=== PATIENT | male | born 1955 | race Caucasian/White ===

== ENCOUNTER → 2024-06-03 | Outpatient (CLI) | payer MEDICARE, MEDICAID, SELFPAY ==
--- NOTE | 2024-06-03 10:25 | XR_ITS ---
Examination: PA lateral chest 2 views TECHNIQUE: Upright PA lateral chest 2 views Exam date and time: June 03, 2024 1104 hours Comparison July 2023 INDICATIONS: TB screening FINDINGS: Normal heart size No pneumonia or pulmonary edema Moderate osteopenia IMPRESSION: No active disease No radiographic findings of tuberculosis
== END | disposition home or self-care (01) ==
PROVIDERS: PCP Family Medicine; Referring Provider Internal Medicine; Visit Provider Internal Medicine
DX: Z11.1 Encounter for screening for respiratory tuberculosis (principal)
CPT/HCPCS: 71046

== ENCOUNTER 2025-03-17 22:23 | Emergency (ER) | payer MEDICARE, MEDICAID, SELFPAY ==
[2025-03-17 22:24] VITALS: BMI 37.5
[2025-03-17 22:59] VITALS: BP 156/89; PULSE 99; RESP 17; TEMP 36.8; O2SAT 96
--- NOTE | 2025-03-17 23:06 | PD.EDRECHK ---
ED Recheck Abnl Lab Rx-RME/HPI General Chief Complaint: General Adult/Misc Complain Stated Complaint: DIALYSIS FISTULA BLEEDING Time Seen by Provider: 03/17/25 23:11 Arrival date/time: 03/17/25 22:23 RME / HPI RME / HPI narrative: See [facility] for Dr. Stiles's HPI documentation. Related Data Home Medications ?Medication ?Instructions ?Recorded ?Confirmed clonidine 0.3 mg/24 hr weekly 0.3 mg topical QWEEK 08/16/21 03/22/24 transdermal patch diphenhydramine HCl 25 mg tablet 25 mg PO Q6H PRN allergy 08/16/21 03/22/24 lisinopril 40 mg tablet 40 mg PO QDAY 08/16/21 03/22/24 tamsulosin 0.4 mg capsule 0.4 mg PO QDAY 08/16/21 03/22/24 vitamin B complex-vitamin C-folic 1 tab PO QDAY 03/19/22 03/22/24 acid 0.8 mg tablet (Bianca-Mayelin) amlodipine 10 mg tablet 10 mg PO QDAY 03/22/24 03/22/24 Previous Rx's ?Medication ?Instructions ?Recorded atorvastatin 80 mg tablet 80 mg PO QPM #30 tabs 03/23/24 Allergies Allergy/AdvReac Type Severity Reaction Status Date / Time Insulins AdvReac Severe Mild rash Verified 03/17/25 22:24 Review of Systems Review of Systems Systems Reviewed: All systems reviewed, normal except as documented ED Exam Narrative Physical exam: See [facility] for Dr. Stiles's physical exam documentation. Course Quality Measures none Orders Category Date Time Status BMP [Basic Metabolic Panel] Stat Lab 03/17/25 23:23 Completed CBC Stat Lab 03/17/25 23:23 Completed Magnesium Stat Lab 03/17/25 23:23 Completed Metoprolol Tartrate [Lopressor] Med 03/17/25 23:12 Discontinued 50 mg PO X1 ONE cloNIDine HCL [Catapres] Med 03/17/25 23:12 Discontinued 0.2 mg PO X1 ONE Vital Signs Vital signs: Vital Signs Temperature 98.2 F 03/17/25 22:59 Pulse Rate 99 03/17/25 22:59 Respiratory Rate 17 03/17/25 22:59 Blood Pressure 156/89 H 03/17/25 22:59 Pulse Oximetry (%) 96 03/17/25 22:59 Oxygen Delivery Method Room Air 03/17/25 22:59 Recheck / Abnormal Lab / Rx MDM Narrative MDM Narrative:: This section includes all my notes and documentations, including HPI, PE, and ED course. Albert Stiles MD HPI: 69yo male with history of ESRD on HD (MWF), IDDM, HTN here with dialysis shunt bleeding. Patient was dialyzed around 3pm today, about 8 hours ago. About an hour ago, he took off the bandage. And noted severe bleeding. No other complaints. ROS: All negative except as documented in HPI. Physical Exam: General: Alert and oriented. No acute distress when remaining still. High BP and tachycardia noted. Eyes: Conjunctivae and lids clear. ENT: No nasal congestion. Neck: Supple. Heart: RRR. Lungs: No respiratory distress. Good air movement. No rhonchi, wheezing, rales. Abdomen: Soft and nontender. Normal bowel sounds. No distension. No rebound or guarding. Back: No CVA tenderness. Skin: Warm and dry. No active bleeding. Neuro: Alert and oriented X 3. I reviewed all diagnostic test results. Blood tests remarkable for Hgb 11.2 and creatinine 5.2. At this point, diagnoses include: Bleeding from dialysis shunt (stopped) Treatment here included: Clonidine 0.2mg PO Metoprolol 50mg PO Significant improvement noted. I discussed the case with our cake washer, Dr. Metcalf. About the presentation and exam and diagnostics and treatments here. Recommended outpatient care. Based on my best medical judgment, made decision no further evaluation or treatment indicated at this time. Patient understands and agrees to the discharge instructions customized and printed, see below. Discharge Instructions from Dr. Stiles printed for you: 1. Fortunately, the bleeding from the dialysis shunt stopped. And your blood tests didn't show excessive amount of blood loss. 2. Your case was discussed with Dr. Metcalf. 3. Continue current care with private doctors. 4. Seek immediate medical care with worsening or with any concerns. Albert Stiles MD Patient data External records reviewed:: [facility] previous records (Per chart review, patient was admitted here on 03/21/24 for fluid overload.) Clinical information provided by:: patient Social determinants that could affect healthcare access:: none Patient has the following chronic illnesses:: ESRD on HD (MWF), IDDM, HTN How is presenting disease/condition affected by chronic disease/condition?: uneffected by Evaluation data The following diagnostics were reviewed and interpreted by me:: lab results Lab and/or radiology exams considered but not ordered:: none Interpretation Summary: I reviewed all diagnostic test results. Blood tests remarkable for Hgb 11.2 and creatinine 5.2. Medications / Prescriptions Medications or Prescriptions considered but not ordered:: none Medication administrations:: Medication Administration History Discontinued Medications Clonidine (Clonidine Hcl 0.1 Mg Tablet) 0.2 mg PO X1 ONE Stop: 03/17/25 23:13 Last Admin: 03/17/25 23:29 Dose: 0.2 mg Documented By: BD Metoprolol Tartrate (Metoprolol Tartrate 25 Mg Tablet) 50 mg PO X1 ONE Stop: 03/17/25 23:13 Last Admin: 03/17/25 23:29 Dose: 50 mg Documented By: BD Clonidine 0.2mg PO Metoprolol 50mg PO Consultations Consultation(s) initiated? (list below): Yes Consultation #1 (Physician, Specialty, Details): I discussed the case with our cake washer, Dr. Metcalf. About the presentation and exam and diagnostics and treatments here. Recommended outpatient care. Diagnosis Recheck Differential Diagnosis: other (Dialysis shunt bleeding, severe anemia, ESRD) Most likely diagnosis given after review of the tests above:: Bleeding from dialysis shunt (stopped) Admission Indicated Admission indicated?: not indicated Explain why admission is indicated or not indicated:: With no condition needing emergent intervention, there was no indication for admission. Admission Request Was there a request for admission?: No Disposition Plan Disposition Plan: Discharge Discharge Attestation Discharge Attestation: The patient and all family members were given an opportunity to ask questions and understood the discharge instructions. Discharge instructions specifically effects, indications for sooner follow up or return to the emergency department, and the expected course of current diagnosis. Patient condition: Stable Discharge Plan Plan Patient Disposition: HOME (Self Care) Prescriptions/Referrals Prescriptions/Med Rec: No Action tamsulosin 0.4 mg capsule 0.4 mg PO QDAY diphenhydramine HCl 25 mg Tablet 25 mg PO Q6H PRN (Reason: allergy) clonidine 0.3 mg/24 hr patch weekly 0.3 mg TOPICAL QWEEK lisinopril 40 mg tablet 40 mg PO QDAY Patient Comments: TAKE 1 TABLET BY MOUTH EVERY DAY Bianca-Mayelin 0.8 mg tablet 1 tab PO QDAY Patient Comments: TAKE 1 TABLET BY MOUTH EVERY DAY amlodipine 10 mg tablet 10 mg PO QDAY Patient Comments: TAKE 1 TABLET BY MOUTH EVERY DAY atorvastatin 80 mg tablet 80 mg PO QPM Qty: 30 2RF Problem List Clinical Impression: Bleeding from dialysis shunt Patient/Caregiver Discharge Instructions Discharge Activity: activity as tolerated Education Materials: ED Chronic Kidney Disease (CKD) Additional Instructions: Discharge Instructions from Dr. Stiles printed for you: 1. Fortunately, the bleeding from the dialysis shunt stopped. And your blood tests didn't show excessive amount of blood loss. 2. Your case was discussed with Dr. Metcalf. 3. Continue current care with private doctors. 4. Seek immediate medical care with worsening or with any concerns. Print Language: Wolof Stand Alone Forms: [facility]ita Award Info., Patient Portal Info Letter
[2025-03-17 23:29] VITALS: BP 176/114; PULSE 86; PULSE 95
[2025-03-17] MEDS: METOPROLOL TARTRATE 25 MG TABLET 50 MG PO (23:29)
[2025-03-17 23:42] LABS: Basophils # (Auto) 0.1 Thou/mm3 (0.0-0.2); Basophils % (Auto) 1 % (0-2.5); Eosinophils # (Auto) 0.5 Thou/mm3 (0.0-0.5); Eosinophils % (Auto) 7 % (0-10); Hematocrit 32.4 % (41.0-53.0); Hemoglobin 11.2 g/dL (13.5-16.0); Immature Granulocytes Auto 0.03 Thou/mm3 (0.00-0.00); Lymphocytes # (Auto) 1.1 Thou/mm3 (1.0-4.8); Lymphocytes % (Auto) 15 % (10-50); Mean Corpuscular HGB Conc 34.6 g/dl (31.0-37.0); Mean Corpuscular Hemoglobin 31.7 pg (25.0-35.0); Mean Corpuscular Volume 92 fL (80-100); Monocytes # (Auto) 0.5 Thou/mm3 (0.0-0.8); Monocytes % (Auto) 7 % (0-12); Neutrophils # (Auto) 5.2 Thou/mm3 (1.8-7.7); Neutrophils % (Auto) 70 % (37-80); Nucleated Red Blood Cell # 0.00 Thou/mm3 (0.00-0.00); Nucleated Red Blood Cell % 0 /100 WBC (0); Platelet Count 171 Thou/mm3 (140-440); RDW Standard Deviation 44.2 fL (35.1-43.9); Red Blood Count 3.53 Miln/mm3 (4.50-5.90); White Blood Count 7.3 Thou/mm3 (3.8-10.6)
[2025-03-17 23:53] LABS: Anion Gap 12 (7-16); BUN/Creatinine Ratio 2 Ratio (12-20); Blood Urea Nitrogen 11 mg/dL (9-23); Calcium 9.4 mg/dL (8.3-10.6); Carbon Dioxide 30.5 mMol/L (20.0-31.0); Chloride 98 mMol/L (98-107); Creatinine (Component) 5.2 mg/dL (0.6-1.3); Estimated Creatinine Clearance 16.0 mL/min (>60); Glucose 120 mg/dL (74-106); Magnesium 2.1 mg/dL (1.6-2.6); Osmolality,Calculated 279 (275-295); Potassium 3.6 mMol/L (3.4-5.1); Sodium 140 mMol/L (136-145); eGFR 11 See Note
== END 2025-03-18 00:21 | disposition home or self-care (01) ==
LOC: SERX 03-18 01:08
PROVIDERS: Emergency Provider Emergency Medicine; PCP Family Medicine
DX: T82.838A Hemorrhage due to vascular prosthetic devices, implants and grafts, initial encounter (principal); Y84.1 Kidney dialysis as the cause of abnormal reaction of the patient, or of later complication, without mention of misadventure at the time of the procedure; E11.22 Type 2 diabetes mellitus with diabetic chronic kidney disease; I12.0 Hypertensive chronic kidney disease with stage 5 chronic kidney disease or end stage renal disease; N18.6 End stage renal disease; Z79.4 Long term (current) use of insulin; Z99.2 Dependence on renal dialysis
CPT/HCPCS: 36415; 80048; 83735; 85025; 99283; A9270